=== PATIENT | female | born 1960 | race African-American/Black ===

== ENCOUNTER 2017-01-15 11:23 | Emergency (ER) | payer OTHER ==
[~2017-01-15] VITALS: Ht 175.3 cm; Wt 145.6 kg
[~2017-01-15 11:23] MED LIST: ADVAIR 250-501 EACH INH; ALBUTEROL NEB; APAP500 PO; BYDUREON2 MG; BYDUREON2 MG SUBQ; CIPROFLOXACIN500 M1 PO; CLARITIN10 MG PO; DILTIAZEM 24HR180 MG PO; FLONASE; GLUCOPHAGE500 MG PO; LANTUS SUBQ; LISINOPRIL-HCT1 EAC1 PO; LOVENOX SC; NOLVADEX 10MG T10 M1 PO; NOLVADEX20 MG PO; NORCO 5-325 TA1 EACH PO; NOVOLOG100 UNIT/1 SUBQ; SINGULAIR 10 MG10 MG PO; SUDAFED30 MG PO; TRADJENTA5 MG PO; XOPENEX HFA15 GM INH
[2017-01-15 12:24] LABS: ABSOLUTE NEUTROPHILS 5.5 thou/uL (1.4-8.2); EOSINOPHILS 0.8 % (0.0-3.0); HEMATOCRIT 39.2 % (37.0-47.0); HEMOGLOBIN 13.2 gm/dL (12.0-15.0); LYMPHOCYTES 30.1 % (24.0-44.0); MCH 24.9 pg (26.0-34.0); MCHC 33.7 g/dL (28.0-37.0); MCV 73.9 fL (80.0-100.0); MONOCYTES 9.7 % (1.0-8.0); PLATELET COUNT 384 thou/uL (150-400); POLYS 58.4 % (36.0-66.0); RDW 16.2 % (10.5-14.5); WBC 9.4 thou/uL (4.0-11.0)
[2017-01-15 12:25] LABS: MANUAL DIFF NO
[2017-01-15 12:30] LABS: CALCIUM 9.2 mg/dL (8.5-10.1); CREATININE 0.8 mg/dL (0.6-1.0); POTASSIUM 3.1 mmol/L (3.5-5.1)
[2017-01-15 14:03] LABS: URINE BLOOD NEGATIVE (Negative); URINE COLOR YELLOW; URINE GLUCOSE-RANDOM* 2+ (Negative); URINE KETONES 2+ (Negative); URINE LEUKOCYTES-REFLEX NEGATIVE (Negative); URINE PROTEIN (DIPSTICK) TRACE (Negative); URINE SPECIFIC GRAVITY 1.025 (1.003-1.035); URINE UROBILINOGEN 0.2 E.U./dl (0.2-1.0)
[2017-01-15 14:05] LABS: URINE BILIRUBIN NEGATIVE (Negative)
[2017-01-15] MEDS ORDERED: POTASSIUM20 PO (14:14)
== END 2017-01-15 15:20 | disposition home or self-care (01) ==
LOC: ER 11:23
PROVIDERS: Emergency Medicine
DX: E11.65 Type 2 diabetes mellitus with hyperglycemia (principal); E87.6 Hypokalemia; I10 Essential (primary) hypertension; J45.909 Unspecified asthma, uncomplicated; E66.01 Morbid (severe) obesity due to excess calories; Z85.3 Personal history of malignant neoplasm of breast; Z90.710 Acquired absence of both cervix and uterus; Z85.43 Personal history of malignant neoplasm of ovary; Z79.4 Long term (current) use of insulin; Z68.42 Body mass index [BMI] 45.0-49.9, adult; Z92.21 Personal history of antineoplastic chemotherapy; Z92.3 Personal history of irradiation; Z88.6 Allergy status to analgesic agent

== ENCOUNTER 2018-02-22 17:18 | Inpatient (IN) | payer OTHER ==
[~2018-02-22] VITALS: Ht 170.2 cm; Wt 127.0 kg
--- NOTE | ~2018-02-22 | HC ---
[facility] [place] [address] CONSULTATION Name: LESLEY POST Room #: 227-P [facility] M.R.#: [id number] Admission: 02/22/18 Attend Phys: Tiana Metcalf Discharge: 02/26/18 Date of : 60 Report #: [id number] THIS REPORT FOR: //name// CC: Tiana Garcia DATE OF SERVICE: 02/25/2018 CHIEF COMPLAINT: Abscess of the right flank area. HISTORY OF PRESENT ILLNESS: This is a 57-year-old female patient who developed pain and swelling in her right flank area. She was seen in consultation by general surgery. She does have a history of diabetes mellitus. She underwent incision and drainage. I have been asked to see her with potent for postoperative wound care. The patient states the pain is somewhat better than preoperatively. She notes that the odor has improved. PAST MEDICAL HISTORY: Significant for morbid obesity, type 2 diabetes mellitus, hypertension, history of right breast cancer, previous hysterectomy, history of asthma requiring prior intubation, as well as hyperlipidemia. FAMILY HISTORY: Positive for diabetes, breast cancer, renal disease, and congestive heart failure. SOCIAL HISTORY: Negative for alcohol or tobacco use. MEDICATIONS: Pravastatin, montelukast, Glucophage, Advair, lisinopril. ALLERGIES: ASPIRIN and NONSTEROIDALS. REVIEW OF SYSTEMS: CONSTITUTIONAL: The patient denies fever, chills or weight loss. NEUROLOGICAL: The patient has focal weakness, tingling, numbness. EYES: The patient denies visual changes, redness or drainage. ENT: The patient denies earache, nasal drainage or sore throat. CARDIOVASCULAR: The patient denies chest pain, palpitation or diaphoresis. PULMONARY: No cough, shortness of breath. GASTROINTESTINAL: The patient denies nausea, vomiting, diarrhea or abdominal pain. ORTHOPEDIC: The patient denies pain or swelling of the extremities. DERMATOLOGIC: The patient does note the abscess in her right flank area. Other systems in a 14-point review of systems are negative. PHYSICAL EXAMINATION: VITAL SIGNS: At this time include pulse 84, respiratory rate of 18, blood [facility] [address] [place] [address] CONSULTATION Name: LESLEY POST Room #: 227-P [facility] M.R.#: [id number] Admission: 02/22/18 Attend Phys: Tiana Metcalf Discharge: 02/26/18 Date of : 60 Report #: [id number] pressure 109/67, temperature 98.0. GENERAL: This is a chronically ill-appearing female patient, appears to be in minimal distress. HEENT: Head normocephalic. Nose and throat are clear. NECK: Supple. LUNGS: Clear. HEART: Rhythm soft, bowel sounds present. The right flank area demonstrates a small abscess cavity. It is relatively clean and granulating. Please see the wound care nurse's notes for specific dimensions. There is no evidence of tunneling or undermining noted at this time. ABDOMEN: Soft, nontender. EXTREMITIES: Without clubbing or cyanosis. NEUROLOGIC: Alert, oriented, and appropriate. CLINICAL IMPRESSION: 1. An abscess to the right flank, status post incision and drainage of diabetes mellitus. 2. Morbid obesity. RECOMMENDATIONS: At this point in time, we recommend packing with 0.25 strength Dakin's moist gauze dressing daily. Continue antibiotics. She will be discharged to the home setting. Family will be instructed on dressing care. We would like to follow her up in the clinic in the next 7 to 10 days. I appreciate being asked to see her again in consultation. <ELECTRONICALLY SIGNED> By: Turner Carrera MD 02/26/18 1514 [id number] Turner Carrera MD /nt
[~2018-02-22 17:18] MED LIST changes: +POTASSIUM20 PO
[2018-02-22 18:00] VITALS: BP 124/72
[2018-02-22] MEDS ORDERED: VICTOZA0.6 MG/0.1 SUBQ (18:24)
[2018-02-22] MEDS ORDERED: SINGULAIR 10 MG10 M1 PO (18:25)
[2018-02-22] MEDS ORDERED: PRAVACHOL40 MG PO (18:25)
[2018-02-22 18:30] LABS: ABSOLUTE NEUTROPHILS 10.4 thou/uL (1.4-8.2); EOSINOPHILS 1.7 % (0.0-3.0); HEMATOCRIT 34.5 % (37.0-47.0); HEMOGLOBIN 11.4 gm/dL (12.0-15.0); LYMPHOCYTES 22.3 % (24.0-44.0); MCV 78.8 fL (80.0-100.0); MONOCYTES 8.3 % (1.0-8.0); PLATELET COUNT 422 thou/uL (150-400); POLYS 66.7 % (36.0-66.0); RBC 4.38 mil/uL (4.20-5.00); RDW 14.6 % (10.5-14.5); WBC 15.6 thou/uL (4.0-11.0)
[2018-02-22 18:36] LABS: CALCIUM 9.8 mg/dL (8.5-10.1); CREATININE 0.9 mg/dL (0.6-1.0); POTASSIUM 3.9 mmol/L (3.5-5.1)
[2018-02-22 20:15] VITALS: BP 122/68
[2018-02-22 21:12] VITALS: BP 105/61
[2018-02-23 04:32] VITALS: BP 97/55
[2018-02-23 12:00] VITALS: BP 106/50
[2018-02-23 16:00] VITALS: BP 103/69
[2018-02-23 16:06] LABS: GLYCOHEMOGLOBIN (HGB A1C) 5.4 % (4.8-5.6)
[2018-02-23 20:30] VITALS: BP 117/67
[2018-02-24 07:20] VITALS: BP 118/75
[2018-02-24 08:21] LABS: HEMATOCRIT 29.1 % (37.0-47.0); HEMOGLOBIN 9.6 gm/dL (12.0-15.0); MCH 25.7 pg (26.0-34.0); MCHC 32.8 g/dL (28.0-37.0); MCV 78.2 fL (80.0-100.0); RBC 3.73 mil/uL (4.20-5.00); WBC 8.9 thou/uL (4.0-11.0)
[2018-02-24 20:31] VITALS: BP 151/87
[2018-02-25 08:20] VITALS: BP 109/67
[2018-02-25 20:07] VITALS: BP 112/59
[2018-02-26 07:50] VITALS: BP 120/97
[2018-02-26] MEDS ORDERED: AUGMENTIN 875-1 EACH PO (09:33)
[2018-02-26] MEDS ORDERED: HYDROCODON-ACE1 EAC7 PO (09:34)
[2018-02-26] MEDS ORDERED: DAKIN'S473 M2 IRRIG (09:34)
[2018-02-26] MEDS ORDERED: ACIDOPHILUS1 EAC3 PO (09:55)
[2018-02-26 10:37] VITALS: BP 120/97
== END 2018-02-26 14:10 | disposition home health service (06) | DRG 854 ==
LOC: ER 17:18 → EROBS 19:57 → SICU 19:57 → 4W 20:52 → SICU 02-23 18:47 → ENTRNSPT 02-26 13:32 → EDTRNSPTSTS 02-26 13:34 → SICU 02-26 14:10
PROVIDERS: Nurse Practitioner Acute Care; Physician Assistant; Surgery
PROC: 0JB80ZZ Excision of Abdomen Subcutaneous Tissue and Fascia, Open Approach (ICD-10-PCS; principal; 2018-02-23)
DX: A41.9 Sepsis, unspecified organism (principal); L02.211 Cutaneous abscess of abdominal wall; Z68.41 Body mass index [BMI] 40.0-44.9, adult; E11.9 Type 2 diabetes mellitus without complications; E78.5 Hyperlipidemia, unspecified; E66.01 Morbid (severe) obesity due to excess calories; J45.909 Unspecified asthma, uncomplicated; L72.3 Sebaceous cyst; I10 Essential (primary) hypertension; Z85.3 Personal history of malignant neoplasm of breast; Z86.718 Personal history of other venous thrombosis and embolism; Z90.710 Acquired absence of both cervix and uterus; Z90.11 Acquired absence of right breast and nipple; Z92.21 Personal history of antineoplastic chemotherapy; Z92.3 Personal history of irradiation; Z79.51 Long term (current) use of inhaled steroids; Z79.84 Long term (current) use of oral hypoglycemic drugs; Z79.899 Other long term (current) drug therapy; Z88.6 Allergy status to analgesic agent; Z88.8 Allergy status to other drugs, medicaments and biological substances; Z80.3 Family history of malignant neoplasm of breast; Z83.3 Family history of diabetes mellitus; Z84.1 Family history of disorders of kidney and ureter; Z82.49 Family history of ischemic heart disease and other diseases of the circulatory system
CPT/HCPCS: 10040; 15000; 50101; 50386; 50417; 62110; 62850; 70005

== ENCOUNTER → 2018-03-21 | Outpatient (CLI) | payer OTHER ==
[~2018-03-21] MED LIST changes: +ACIDOPHILUS1 EAC3 PO; +AUGMENTIN 875-1 EACH PO; +DAKIN'S473 M2 IRRIG; +HYDROCODON-ACE1 EAC7 PO; +PRAVACHOL40 MG PO; +SINGULAIR 10 MG10 M1 PO; +VICTOZA0.6 MG/0.1 SUBQ
== END ==
LOC: HYPER 07:04
DX: T81.89XD Other complications of procedures, not elsewhere classified, subsequent encounter (principal); E66.01 Morbid (severe) obesity due to excess calories; E11.69 Type 2 diabetes mellitus with other specified complication; I10 Essential (primary) hypertension; J45.909 Unspecified asthma, uncomplicated; E78.5 Hyperlipidemia, unspecified; Z85.3 Personal history of malignant neoplasm of breast; Z86.718 Personal history of other venous thrombosis and embolism; Z90.710 Acquired absence of both cervix and uterus; Z68.42 Body mass index [BMI] 45.0-49.9, adult; Y83.8 Other surgical procedures as the cause of abnormal reaction of the patient, or of later complication, without mention of misadventure at the time of the procedure